=== PATIENT | female | born 1995 | race Caucasian/White ===

== ENCOUNTER 2016-12-14 15:07 | Outpatient (CLI) | payer MEDICAID ==
[2016-12-14 16:00] LABS: APPEARANCE,URINE CLEAR; BILIRUBIN,URINE NEGATIVE (NEGATIVE); GLUCOSE, URINE NEGATIVE (NEGATIVE); KETONES,URINE NEGATIVE (NEGATIVE); LEUKOCYTE ESTERASE,URINE SMALL (NEGATIVE); NITRITE,URINE NEGATIVE (NEGATIVE); PROTEIN,URINE NEGATIVE (NEGATIVE); URINE SPECIFIC GRAVITY 1.013; UROBILINOGEN,URINE NEGATIVE mg/dL (<2.0)
[2016-12-14 16:05] LABS: AMNISURE (ROM) NEGATIVE (NEGATIVE)
[2016-12-14 16:17] LABS: URINE BARBITURATES SCREEN NEGATIVE; URINE METHADONE SCREEN NEGATIVE; URINE OPIATES LOW NEGATIVE; URINE PHENCYCLIDINE SCREEN NEGATIVE
--- NOTE | 2016-12-14 18:05 | Non Stress Test Report ---
Non Stress Test Datetime Report Generated by CPN: 12/14/2016 18:05 DEMOGRAPHIC EGA NST: 34.5 INDICATION Indication for Study: Ordered by Provider; Other Indication for Study (NST) Other: lc for r/o srom VITAL SIGNS Temperature - NST: 98.5 RESP - NST: 16 MONITORING Monitor Explained: Monitor Explained; Test Explained; Patient Verbalized Understanding Time on Monitor: 12/14/2016 17:30 Time off Monitor: 12/14/2016 18:02 NST Duration: 32 NST INTERVENTIONS NST Interventions: PO Hydration; Reposition Patient Physician Notified NST: [place]anto BABY A: [id number] BABY A Movement : Present Contraction Frequency : irregular FHR Baseline : 150 Accelerations : 15X15 Decelerations : None Variability : Moderate 6-25bpm NST Review: Meets Criteria for Reactive NST NST Review and Verified By : Andressa Verduzco RN NST Results: Reactive NST REPORT Report Trigger: Send Report
[2016-12-14 18:16] LABS: ABSOLUTE BASOPHILS # (AUTO) 0.1 10^3/uL (0.0-0.2); ABSOLUTE LYMPHOCYTES (AUTO) 1.7 10^3/uL (0.5-4.7); ABSOLUTE MONOCYTES (AUTO) 0.6 10^3/uL (0.1-1.4); ABSOLUTE NEUT (AUTO) 8.6 10^3/uL (1.7-8.2); BASOPHILS % (AUTO) 0.8 % (0-2); EOSINOPHILS % (AUTO) 0.2 % (0-6); HEMATOCRIT 36.4 % (36.0-47.0); HEMOGLOBIN 12.6 g/dL (12.0-15.5); HGB HCT DIFFERENCE 1.4; LYMPHOCYTES % (AUTO) 15.7 % (13-45); MEAN CORPUSCULAR HEMOGLOBIN 28.7 pg (27.0-33.4); MEAN CORPUSCULAR HGB CONC 34.6 g/dL (32.0-36.0); MEAN CORPUSCULAR VOLUME 83 fl (80-97); MONOCYTES % (AUTO) 5.1 % (3-13); RED CELL DISTRIBUTION WIDTH 13.4 % (11.5-14.0); SEGMENTED NEUTROPHILS % (AUTO) 78.2 % (42-78)
[2016-12-14 18:33] LABS: ALANINE AMINOTRANSFERASE 21 U/L (9-52); ALBUMIN 3.8 g/dL (3.5-5.0); ALKALINE PHOSPHATASE 148 U/L (38-126); ANION GAP 15 (5-19); ASPARTATE AMINO TRANSFERASE 20 U/L (14-36); BILIRUBIN,DIRECT 0.1 mg/dL (0.0-0.4); BILIRUBIN,TOTAL 0.4 mg/dL (0.2-1.3); BLOOD UREA NITROGEN 5 mg/dL (7-20); CALCIUM 10.5 mg/dL (8.4-10.2); CARBON DIOXIDE 21 mmol/L (22-30); CHLORIDE 105 mmol/L (98-107); CREATININE RESULT 0.41 mg/dL (0.52-1.25); GLUCOSE 74 mg/dL (75-110); LDH 339 U/L (313-618); POTASSIUM 3.8 mmol/L (3.6-5.0); SODIUM 141.3 mmol/L (137-145); TOTAL PROTEIN 6.8 g/dL (6.3-8.2); URIC ACID 4.5 mg/dL (2.5-6.2)
== END 2016-12-14 18:53 | disposition home or self-care (01) ==
LOC: LC 15:07
PROVIDERS: ATTEND Student in an Organized Health Care Education/Training Program
PROC: 4A1HXCZ Monitoring of Products of Conception, Cardiac Rate, External Approach (ICD-10-PCS; principal; 2016-12-14)
DX: O47.03 False labor before 37 completed weeks of gestation, third trimester (principal); Z3A.34 34 weeks gestation of pregnancy
CPT/HCPCS: 36415; 59025; 80053; 80307; 81005; 83615; 84112; 84550; 85025

== ENCOUNTER 2018-05-10 18:12 | Emergency (ER) | payer MEDICAID, OTHER ==
[2018-05-10] MEDS ORDERED: ALBUTEROL SULFATE 0.083% NEB 2.5 MG/3 ML AMPUL NEB ONE (18:41)
--- NOTE | 2018-05-10 19:02 | RADIOLOGY REPORT (SQ) ---
EXAM DESCRIPTION: CHEST 2 VIEWS COMPLETED DATE/TIME: 05/10/2018 6:54 pm REASON FOR STUDY: cough x 1 month, wheezing COMPARISON: None. EXAM PARAMETERS: NUMBER OF VIEWS: two views TECHNIQUE: Digital Frontal and Lateral radiographic views of the chest acquired. RADIATION DOSE: NA LIMITATIONS: none FINDINGS: LUNGS AND PLEURA: No opacities, masses or pneumothorax. No pleural effusion. MEDIASTINUM AND HILAR STRUCTURES: No masses or contour abnormalities. HEART AND VASCULAR STRUCTURES: Heart normal size. No evidence for failure. BONES: No acute findings. HARDWARE: None in the chest. OTHER: No other significant finding. IMPRESSION: NO ACUTE RADIOGRAPHIC FINDING IN THE CHEST. TECHNICAL DOCUMENTATION: JOB ID: [id number] [employer]- All Rights Reserved Reading location - IP/workstation name: [email or web address]
--- NOTE | 2018-05-10 19:32 | ER Document Report ---
HPI - HPI Patient complains to provider of: Cough Onset: Other - 1 month Pain Level: 1 Context: 23-year-old non-smoker is been complaining cough for 1 month. She was treated and earlier in the month by [facility] and given a azithromycin and diagnosed with upper respiratory infection. The antibiotics did not help. She is continued to cough and feels tight in her chest. No history of asthma. No fever or chills. Associated Symptoms: None Exacerbated by: Denies Relieved by: Denies Similar symptoms previously: Yes Recently seen / treated by doctor: Yes - ROS ROS below otherwise negative: Yes Systems Reviewed and Negative: Yes All other systems reviewed and negative - CARDIOVASCULAR Cardiovascular: REPORTS: Chest pain - RESPIRATORY Respiratory: REPORTS: Coughing - with coughing - GASTROINTESTINAL Gastrointestinal: DENIES: Abdominal Pain - URINARY Urinary: DENIES: Dysuria - REPRODUCTIVE Reproductive: REPORTS: : Past Medical History - General Information source: Patient - Social History Smoking Status: Never Smoker Chew tobacco use (# tins/day): No Frequency of alcohol use: Occasional Drug Abuse: None Lives with: Family Family History: Reviewed & Not Pertinent Patient has suicidal ideation: No Patient has homicidal ideation: No - Past Medical History Cardiac Medical History: Reports: Hx Hypertension Renal/ Medical History: Denies: Hx Peritoneal Dialysis Past Surgical History: Reports: Hx Section, Hx Cholecystectomy - Immunizations Hx Diphtheria, Pertussis, Tetanus Vaccination: Yes Vertical Provider Document - CONSTITUTIONAL Agree With Documented VS: Yes Exam Limitations: No Limitations - INFECTION CONTROL TRAVEL OUTSIDE OF THE [place] IN LAST 30 DAYS: No - HEENT HEENT: Normocephalic, Pharyngeal Erythema - Minimal. negative: Tympanic Membrane Red, Tympanic Membrane Bulging - NECK Neck: Supple. negative: Lymphadenopathy-Left, Lymphadenopathy-Right - RESPIRATORY Respiratory: No Respiratory Distress, Wheezing - Inspiratory on the left - CARDIOVASCULAR Cardiovascular: Regular Rate, Regular Rhythm - NEURO Level of Consciousness: Awake - DERM Integumentary: No Rash Course - Re-evaluation Re-evalutation: 05/10/18 19:32 Chest x-ray is negative per radiologist. looser cough and insp/exp wheeze heard now. She feels like it is alot looser. We will give 1 more breathing treatment and start her on prednisone. 05/10/18 20:37 Lungs clear after second treatment - Vital Signs Vital signs: Temp Pulse Resp BP Pulse Ox 99.4 F 104 H 18 136/90 H 100 05/10/18 18:25 05/10/18 18:25 05/10/18 18:25 05/10/18 18:25 05/10/18 18:25 Discharge - Discharge Clinical Impression: Asthmatic bronchitis Condition: Good Disposition: HOME, SELF-CARE Instructions: Bronchitis With Bronchospasm (Wheezing) (OM), Inhaled Bronchodilators (OM), Steroid Medication Additional Instructions: Prednisone for 4 more days Use the albuterol inhaled metered-dose inhaler every 3 hours for the cough and wheeze Return to the emergency room if symptoms worsen Referral to family practice. Prescriptions: Albuterol Sulfate [Proair HFA Inhalation Aerosol 8.5 gm MDI] 2 puff IH Q3HP PRN #1 hfa.aer.ad PRN Reason: Prednisone [Deltasone 20 mg Tablet] 40 mg PO DAILY #8 tablet Forms: Return to Work Referrals: JAEL IBRAHIM NP [COMMUNITY BASED STAFF] - Follow up as needed
[2018-05-10] MEDS ORDERED: IPRATROPIUM/ALBUTEROL 0.5-2.5 MG/3 ML AMPUL NEB ONE (19:44)
[2018-05-10] MEDS ORDERED: PREDNISONE 20 MG TABLET PO ONE (19:49)
[2018-05-10 20:28] VITALS: BP 136/89
== END 2018-05-10 20:27 | disposition home or self-care (01) ==
LOC: ER 18:12
DX: O99.519 Diseases of the respiratory system complicating pregnancy, unspecified trimester (principal); J45.909 Unspecified asthma, uncomplicated; O26.899 Other specified pregnancy related conditions, unspecified trimester; R05 Cough; R07.89 Other chest pain; O16.9 Unspecified maternal hypertension, unspecified trimester; Z3A.00 Weeks of gestation of pregnancy not specified
CPT/HCPCS: 94640 ×2; 99285; 71046; J7512; J7620

== ENCOUNTER 2018-06-28 18:51 | Emergency (ER) | payer OTHER ==
[2018-06-28] MEDS ORDERED: ASPIRIN 81 MG TABLET, CHEWABLE PO ONE (19:46)
--- NOTE | 2018-06-28 19:46 | ER Document Report ---
ED Medical Screen (RME) - General Chief Complaint: Painful Cough Stated Complaint: CHEST PAIN Time Seen by Provider: 06/28/18 19:38 Notes: 23-year-old female presents emergency department with complaints of chest pain and shortness of breath. Patient states that she just began having chest pain since yesterday afternoon. She describes the pain as a sharp and stabbing sensation that is located midsternally with radiation to between her shoulder blades. Patient states that the pain has been constant. She states that it is worse with coughing. No alleviating factors. Patient states that she has been having increasing shortness of breath. She has a history of shortness of breath since March. She is been worked up in both the emergency department and and her primary care physician's office. She has been placed on antibiotics and prednisone. She denies any relief of symptoms. Patient states that she just had a CT of her chest done last week. She states that this was normal. Patient was referred to a x ray nurse. She states that she is scheduled to follow-up with x ray nurse at the beginning of July. She states that when she coughs she begins to see black and feels like she is going to pass out. She denies any actual syncopal episodes. Patient is coughing up thick green sputum. Denies fever, chills. Patient denies hx of DVT/PE, calf pain, calf swelling, recent travel, recent surgery, hormone use. Patient has a hx of HTN but denies DM, hyperlipidemia, CAD, smoking, family hx of CAD. I have greeted and performed a rapid initial assessment of this patient. A comprehensive ED assessment and evaluation of the patient, analysis of test results and completion of the medical decision making process will be conducted by additional ED providers. PHYSICAL EXAMINATION: GENERAL: Well-appearing, well-nourished and in no acute distress. HEAD: Atraumatic, normocephalic. EYES: Pupils equal round extraocular movements intact, conjunctiva are normal. ENT: Nares patent NECK: Normal range of motion LUNGS: No respiratory distress Musculoskeletal: Normal range of motion NEUROLOGICAL: Normal speech, normal gait. PSYCH: Normal mood, normal affect. SKIN: Warm, Dry, normal turgor, no rashes or lesions noted. TRAVEL OUTSIDE OF THE [place] IN LAST 30 DAYS: No - Related Data Allergies/Adverse Reactions: No Known Allergies Allergy (Unverified 08/03/14 23:23) Past Medical History - Social History Chew tobacco use (# tins/day): No Frequency of alcohol use: Occasional Drug Abuse: None - Past Medical History Cardiac Medical History: Reports: Hx Hypertension Renal/ Medical History: Denies: Hx Peritoneal Dialysis Past Surgical History: Reports: Hx Section, Hx Cholecystectomy - Immunizations Hx Diphtheria, Pertussis, Tetanus Vaccination: Yes Physical Exam - Vital signs Vitals: Temp Pulse Resp BP Pulse Ox 98.6 F 116 H 22 H 146/104 H 98 06/28/18 19:10 06/28/18 19:10 06/28/18 19:10 06/28/18 19:10 06/28/18 19:10 Course - Vital Signs Vital signs: Temp Pulse Resp BP Pulse Ox 98.6 F 116 H 22 H 146/104 H 98 06/28/18 19:10 06/28/18 19:10 06/28/18 19:10 06/28/18 19:10 06/28/18 19:10
[2018-06-28] MEDS ORDERED: ASPIRIN 81 MG TABLET, CHEWABLE ONE (19:47)
[2018-06-28] MEDS ORDERED: METHYLPREDNISOLONE INJ 125 MG/2 ML SDV IV ONE (19:53)
[2018-06-28] MEDS ORDERED: IPRATROPIUM/ALBUTEROL 0.5-2.5 MG/3 ML AMPUL NEB ONE (19:53)
[2018-06-28 20:10] LABS: ABSOLUTE BASOPHILS # (AUTO) 0.1 10^3/uL (0.0-0.2); ABSOLUTE EOSINOPHILS # (AUTO) 0.1 10^3/uL (0.0-0.6); ABSOLUTE LYMPHOCYTES (AUTO) 2.9 10^3/uL (0.5-4.7); ABSOLUTE MONOCYTES (AUTO) 0.8 10^3/uL (0.1-1.4); ABSOLUTE NEUT (AUTO) 7.7 10^3/uL (1.7-8.2); BASOPHILS % (AUTO) 1.3 % (0-2); EOSINOPHILS % (AUTO) 0.8 % (0-6); HEMATOCRIT 42.1 % (36.0-47.0); HEMOGLOBIN 14.4 g/dL (12.0-15.5); MEAN CORPUSCULAR HEMOGLOBIN 29.1 pg (27.0-33.4); MEAN CORPUSCULAR HGB CONC 34.3 g/dL (32.0-36.0); MEAN CORPUSCULAR VOLUME 85 fl (80-97); MONOCYTES % (AUTO) 7.1 % (3-13); PLATELET COUNT 434 10^3/uL (150-450); RED BLOOD COUNT 4.96 10^6/uL (3.72-5.28); RED CELL DISTRIBUTION WIDTH 12.8 % (11.5-14.0); SEGMENTED NEUTROPHILS % (AUTO) 65.8 % (42-78); TOTAL CELLS COUNTED % (AUTO) 100 %; WHITE BLOOD COUNT 11.8 10^3/uL (4.0-10.5)
--- NOTE | 2018-06-28 20:21 | RADIOLOGY REPORT (SQ) ---
EXAM DESCRIPTION: CHEST SINGLE VIEW COMPLETED DATE/TIME: 06/28/2018 8:06 pm REASON FOR STUDY: chest pain, cough, shortness of breath COMPARISON: None. EXAM PARAMETERS: NUMBER OF VIEWS: One view. TECHNIQUE: Single frontal radiographic view of the chest acquired. RADIATION DOSE: NA LIMITATIONS: None. FINDINGS: LUNGS AND PLEURA: No opacities, masses or pneumothorax. No pleural effusion. MEDIASTINUM AND HILAR STRUCTURES: No masses. Contour normal. HEART AND VASCULAR STRUCTURES: Heart normal in size. Normal vasculature. BONES: No acute findings. HARDWARE: None in the chest. OTHER: No other significant finding. IMPRESSION: NO ACUTE RADIOGRAPHIC FINDING IN THE CHEST. TECHNICAL DOCUMENTATION: JOB ID: [id number] [employer]- All Rights Reserved Reading location - IP/workstation name: [email or web address]
[2018-06-28 20:27] LABS: ALANINE AMINOTRANSFERASE 68 U/L (9-52); ALBUMIN 4.5 g/dL (3.5-5.0); ALKALINE PHOSPHATASE 75 U/L (38-126); ANION GAP 9 (5-19); ASPARTATE AMINO TRANSFERASE 58 U/L (14-36); BILIRUBIN,DIRECT 0.4 mg/dL (0.0-0.4); BILIRUBIN,TOTAL 0.6 mg/dL (0.2-1.3); BLOOD UREA NITROGEN 9 mg/dL (7-20); CALCIUM 9.9 mg/dL (8.4-10.2); CARBON DIOXIDE 29 mmol/L (22-30); CHLORIDE 103 mmol/L (98-107); GLUCOSE 97 mg/dL (75-110); LIPASE 53.2 U/L (23-300); POTASSIUM 4.1 mmol/L (3.6-5.0); SODIUM 140.5 mmol/L (137-145); TOTAL PROTEIN 8.5 g/dL (6.3-8.2)
--- NOTE | 2018-06-28 23:00 | RADIOLOGY REPORT (SQ) ---
EXAM DESCRIPTION: CT CHEST ANGIOGRAPHY WITHOUT THEN WITH IV CONTRAST COMPLETED DATE/TME: 06/28/2018 20:55 CLINICAL HISTORY: 23 years Female SOB COMPARISON: None. TECHNIQUE: Contiguous axial images were obtained through the chest during the infusion of IV contrast. Reformatted images obtained. MIP reformatted images obtained. This exam was performed according to our department optimization program which includes automated exposure control, adjustment of the mA and/or kv according to patient size and/or use of iterative reconstruction technique. FINDINGS: There is no evidence of pericardial effusion or pleural effusion. No significant thoracic adenopathy. Aorta is normal in caliber without dissection or rupture. Enlarged fatty liver. There appears to be pneumobilia. No evidence of pulmonary embolus. No acute consolidation noted. IMPRESSION:No evidence of pulmonary embolus Enlarged fatty liver Pneumobilia which may be postsurgical
--- NOTE | 2018-06-28 23:47 | ER Document Report ---
ED Respiratory Problem - General Chief Complaint: Painful Cough Stated Complaint: CHEST PAIN Time Seen by Provider: 06/28/18 19:38 Mode of Arrival: Ambulatory Information source: Patient, Relative Notes: Patient is a 23-year-old female comes emergency room complaining of cough shortness of breath and chest pain. Patient states she started with this hacking dry cough back in March. She has seen her primary care provider for this who believe that part of her problem was the size of her tonsils which are enormous and he also told her there is something else involved but is not sure what. He is scheduled her a exam with a football scout but she can see the football scout until July 19 and she is not getting any better. She also had a plain CT of the chest done which was also negative this had been ordered by primary care provider as well. Patient states that she has developed this dry hacking cough that at times puts her into such a bit since she nearly passes out because she cannot stop. She has been giving MDIs as well as steroids with no relief. But states that the one time she got some relief was when she received IM injection of steroids. She has been told she has very enlarged tonsils and when she gets a steroid shot it also reduces their size but she still continues to wheeze. 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 She is currently taking no medications and denies any other medical problems. She has a history of surgeries only a cholecystectomy. She does states she has an occasional night sweat. What is concerning patient is that she is starting to lose sleep over this with a hacking cough that wakes her up in the middle the night. The only association she can make with this cough is it almost always occurs with exertion but never with change in weather humidity or cold. She was treated for bronchitis from a walk-in clinic in March with a steroid pack and Zithromax with no relief of symptoms. She was then seen here in our ER where she was diagnosed with bronchitis as well and sent out on a steroid taper and inhaler. TRAVEL OUTSIDE OF THE [place] IN LAST 30 DAYS: No - HPI Patient complains to provider of: Asthma, Chest pain, Cough, Short of breath Onset: Other - 3 months ago but progressively worse the past 24 hours. Duration: Worse/persistent Initiating Event: Other - Unknown Quality of pain: Achy Severity: Moderate Pain Level: 3 Short of Breath: Moderate Chest pain/discomfort: Constant Cough: Nonproductive Sputum amount: Small Sputum color: Green Sputum consistency: Thick At home treatment: Bronchodilators, Oral steroids Associated symptoms: Anxiety, Chest pain/discomfort, Wheezing Similar symptoms previously: Yes Recently seen / treated by doctor: Yes - Related Data Allergies/Adverse Reactions: No Known Allergies Allergy (Unverified 04/15/14 23:23) Past Medical History - General Information source: Patient, Parent - Social History Smoking Status: Never Smoker Cigarette use (# per day): No Chew tobacco use (# tins/day): No Smoking Education Provided: No Frequency of alcohol use: Occasional Drug Abuse: None Family History: Reviewed & Not Pertinent Patient has suicidal ideation: No Patient has homicidal ideation: No - Past Medical History Cardiac Medical History: Reports: Hx Hypertension Renal/ Medical History: Denies: Hx Peritoneal Dialysis Past Surgical History: Reports: Hx Section, Hx Cholecystectomy - Immunizations Hx Diphtheria, Pertussis, Tetanus Vaccination: Yes Review of Systems - Review of Systems Constitutional: No symptoms reported EENT: No symptoms reported Cardiovascular: Chest pain Respiratory: Short of breath, Wheezing Gastrointestinal: No symptoms reported Genitourinary: No symptoms reported Female Genitourinary: No symptoms reported Musculoskeletal: No symptoms reported Skin: No symptoms reported Hematologic/Lymphatic: No symptoms reported Neurological/Psychological: No symptoms reported -: Yes All other systems reviewed and negative Physical Exam - Vital signs Vitals: Temp Pulse Resp BP Pulse Ox 98.6 F 116 H 22 H 146/104 H 98 06/28/18 19:10 06/28/18 19:10 06/28/18 19:10 06/28/18 19:10 06/28/18 19:10 - Notes Notes: Well-nourished well-developed 23-year-old female no apparent distress on examination. - General General appearance: Appears well, Alert - HEENT Head: Normocephalic, Atraumatic Eyes: Normal Tympanic membrane: Normal. No: Bulging Sinus: Normal. No: Abnormal, Frontal, Mastoid, Maxillary, Redness, Swelling, Tenderness Nasal: Normal. No: Bloody discharge, Nelson deformity, Ecchymosis, Epistaxis, Purulent discharge, Septal hematoma, Swelling, Clear rhinorrhea Mouth/Lips: Normal. No: Angioedema, Caries, Dental fracture Mucous membranes: Normal Pharynx: Normal, Erythema, Uvular edema, Other - Examination patient's oral cavity does show in the posterior pharynx has a moderate amount of erythema with patient having bilateral tonsillar enlargement that are about equal in size. There is no exudate noted. Uvula is midline with moderate amount of erythema no exudate there is no encroachment upon the uvula by the tonsils at this time.. No: Blood in hypopharynx, Exudate, Peritonsillar abscess, Post nasal drainage, Retropharyngeal abscess, Tonsillar hypertrophy, Potential airway comprom. Neck: Normal, Supple. No: Anterior cervical chain, Posterior cervical chain, Carotid bruit, Kernig's, Lymphadenopathy, Meningismus, Neck mass, Shotty nodes, Subcutaneous emphysema, Thyroid nodule, Thyromegally - Respiratory Respiratory status: No respiratory distress Chest status: Nontender Breath sounds: Normal, Wheezing. No: Rales, Rhonchi, Stridor Chest palpation: Normal - Cardiovascular Rhythm: Regular Heart sounds: Normal auscultation Murmur: No - Abdominal Inspection: Normal Distension: No distension Bowel sounds: Normal Tenderness: Nontender Organomegaly: No organomegaly - Extremities General upper extremity: Normal inspection, Nontender, Normal color, Normal ROM , Normal strength, Normal temperature. No: Edema General lower extremity: Normal inspection, Nontender, Normal ROM, Normal strength, Normal temperature, Normal weight bearing. No: Edema - Neurological Neuro grossly intact: Yes Cognition: Normal Orientation: AAOx4 Armando Coma Scale Eye Opening: Spontaneous [place] Coma Scale Verbal: Oriented Armando Coma Scale Motor: Obeys Commands [place] Coma Scale Total: 15 Speech: Normal - Skin Skin Temperature: Warm Skin Moisture: Dry Skin Color: Normal, Lyles Course - Re-evaluation Re-evalutation: 06/28/18 23:55 During original history and physical examination. And as I was talking to patient about having any lower extremity trauma leading to the idea of a possible PE mother injected some information that seem pertinent at the time and that is that she was diagnosed with a PE at a young age with no history of trauma. Mother states that I took him 18 hours of why she could not breathe "back then". And she was concerned that her daughter may have the same thing. Given the symptoms of patient having some tachycardia and drops that with exertion hypothesis was a possibility. Given that without any trauma I seriously doubted the d-dimer would be elevated so I elected to do the CTA of the chest. The CT actually was negative and I have informed patient that there is hardly anything else I can think of to do that she is going to need to see the football scout for further interventions. I did suggest however we will place her on an oral inhaled steroid and for that I have chosen the Azmacort. Patient will give this attempt with along with her MDI inhaler she will continue to use every 4-6 hours. I believe she has some form of a reactive airway however cannot put my finger on why it is accentuated only with exertion. Also cannot figure out why the steroids orally did not seem to help her. At this point when I tried to treat her cough with some Tessalon Perles. - Vital Signs Vital signs: Temp Pulse Resp BP Pulse Ox 98.6 F 116 H 22 H 146/104 H 98 06/28/18 19:10 06/28/18 19:10 06/28/18 19:10 06/28/18 19:10 06/28/18 19:10 - Laboratory Result Diagrams: 06/28/18 19:57 06/28/18 19:57 Laboratory results interpreted by me: 06/28/18 06/28/18 19:57 19:57 WBC 11.8 H AST 58 H ALT 68 H Total Protein 8.5 H Discharge - Discharge Clinical Impression: Cough Reactive airway disease with acute exacerbation Qualifiers: Asthma severity: moderate Asthma persistence: persistent Qualified Code(s): J45.41 - Moderate persistent asthma with (acute) exacerbation Condition: Stable Disposition: HOME, SELF-CARE Instructions: Reactive Airway Disease ([facility]) Additional Instructions: As we discussed you really need to see the football scout to help you with this problem. At this time I will will place you on a inhaled steroid and continue with your MDI treatments. Also place you on a medication for esophagitis to see if that helps alleviate the cough. We will also place you on some Tessalon Perles. Should you have any concerns or problems return to ER for recheck. As we discussed the CTA of your chest shows there was no pulmonary embolism which was marked main primary concern with your mother's history. Prescriptions: Benzonatate [Tessalon Perle 100 mg Capsule] 100 mg PO Q8HP PRN #30 cap PRN Reason: Omeprazole 40 mg PO DAILY #30 capsule.dr Triamcinolone Acetonide [Azmacort] 20 gm IH BID #1 aer.w.adap Referrals: MICHAEL MIRZA, ACUTE CARE REGISTERED NURSE-C [Primary Care Provider] - Follow up as needed
[2018-06-29 03:39] VITALS: BP 128/85
--- NOTE | 2018-06-29 07:55 | EKG REPORT ---
SEVERITY:- OTHERWISE NORMAL ECG - SINUS TACHYCARDIA : Confirmed by: Marciano Almaraz MD 29-Jun-2018 07:54:45
== END 2018-06-29 00:35 | disposition home or self-care (01) ==
LOC: ER 18:51
DX: J45.41 Moderate persistent asthma with (acute) exacerbation (principal); J35.1 Hypertrophy of tonsils; R05 Cough; R06.02 Shortness of breath; R07.9 Chest pain, unspecified; R61 Generalized hyperhidrosis; F41.9 Anxiety disorder, unspecified; R00.0 Tachycardia, unspecified; I10 Essential (primary) hypertension; Z82.49 Family history of ischemic heart disease and other diseases of the circulatory system
CPT/HCPCS: 93005; 94640; 99284; 96374; 36415; 87070; 87880; 83690; 85025; 80053; 84484; 71045; 71275; 93010; J2930; J7620

== ENCOUNTER 2018-09-03 01:40 | Emergency (ER) | payer OTHER ==
[2018-09-03 02:56] LABS: ABSOLUTE BASOPHILS # (AUTO) 0.1 10^3/uL (0.0-0.2); ABSOLUTE EOSINOPHILS # (AUTO) 0.1 10^3/uL (0.0-0.6); ABSOLUTE LYMPHOCYTES (AUTO) 2.2 10^3/uL (0.5-4.7); ABSOLUTE NEUT (AUTO) 10.1 10^3/uL (1.7-8.2); EOSINOPHILS % (AUTO) 0.6 % (0-6); HEMATOCRIT 41.7 % (36.0-47.0); HEMOGLOBIN 14.2 g/dL (12.0-15.5); LYMPHOCYTES % (AUTO) 16.3 % (13-45); MEAN CORPUSCULAR HEMOGLOBIN 28.8 pg (27.0-33.4); MEAN CORPUSCULAR VOLUME 85 fl (80-97); MONOCYTES % (AUTO) 7.3 % (3-13); PLATELET COUNT 418 10^3/uL (150-450); RED BLOOD COUNT 4.92 10^6/uL (3.72-5.28); RED CELL DISTRIBUTION WIDTH 12.6 % (11.5-14.0); SEGMENTED NEUTROPHILS % (AUTO) 74.8 % (42-78); TOTAL CELLS COUNTED % (AUTO) 100 %; WHITE BLOOD COUNT 13.4 10^3/uL (4.0-10.5)
[2018-09-03 03:03] LABS: ALANINE AMINOTRANSFERASE 59 U/L (9-52); ALBUMIN 4.5 g/dL (3.5-5.0); ALKALINE PHOSPHATASE 93 U/L (38-126); ANION GAP 10 (5-19); ASPARTATE AMINO TRANSFERASE 40 U/L (14-36); BILIRUBIN,DIRECT 0.3 mg/dL (0.0-0.4); BILIRUBIN,TOTAL 0.7 mg/dL (0.2-1.3); BLOOD UREA NITROGEN 10 mg/dL (7-20); CARBON DIOXIDE 26 mmol/L (22-30); CHLORIDE 105 mmol/L (98-107); GLUCOSE 108 mg/dL (75-110); LIPASE 67.8 U/L (23-300); POTASSIUM 4.3 mmol/L (3.6-5.0); SODIUM 140.6 mmol/L (137-145); TOTAL PROTEIN 7.9 g/dL (6.3-8.2)
--- NOTE | 2018-09-03 03:07 | RADIOLOGY REPORT (SQ) ---
EXAM DESCRIPTION: XR CHEST 2 VIEWS COMPLETED DATE/TME: 09/03/2018 02:31 CLINICAL HISTORY: 23 years Female, pain COMPARISON:06/28/2018 NUMBER OF VIEWS/TECHNIQUE: 2, Frontal, Lateral FINDINGS: Moderate lung volume, clear parenchyma, normal cardiac silhouette, and intact bony thorax. IMPRESSION: No acute cardiopulmonary findings.
[2018-09-03] MEDS ORDERED: KETOROLAC TROMETHAMINE INJ/PF 30 MG/1 ML SDV IV ONE (03:14)
[2018-09-03 03:22] LABS: APPEARANCE,URINE CLEAR; BILIRUBIN,URINE NEGATIVE (NEGATIVE); COLOR,URINE YELLOW; GLUCOSE, URINE NEGATIVE (NEGATIVE); KETONES,URINE NEGATIVE (NEGATIVE); LEUKOCYTE ESTERASE,URINE NEGATIVE (NEGATIVE); NITRITE,URINE NEGATIVE (NEGATIVE); PROTEIN,URINE NEGATIVE (NEGATIVE); URINE SPECIFIC GRAVITY 1.016; UROBILINOGEN,URINE NEGATIVE mg/dL (<2.0)
--- NOTE | 2018-09-03 03:32 | RADIOLOGY REPORT (SQ) ---
EXAM DESCRIPTION: US ABDOMEN LIMITED COMPLETED DATE/TME: 09/03/2018 02:32 CLINICAL HISTORY: 23 years Female, right upper quadrant pain Comparison: None. LIMITATIONS: Bowel gas and body habitus artifact. FINDINGS: Cholecystectomy, negative sonographic Turner's test, 19 cm mild hepatomegaly, moderate hepatic steatosis obscured common bile duct, no intrahepatic ductal dilation, 13-cm right kidney, obscured pancreas, visualized vasculature/abdominal aorta, and no significant ascites appear otherwise unremarkable. IMPRESSION: No acute findings. Hepatic steatosis. Cholecystectomy. Limitation.
--- NOTE | 2018-09-03 04:08 | ER Document Report ---
ED General - General Chief Complaint: Shortness Of Breath Stated Complaint: SHORTNESS OF BREATH Time Seen by Provider: 09/03/18 02:24 Notes: Patient is a 23-year-old female presenting to the emergency department complaining of shortness of breath and right upper quadrant abdominal pain. Patient states this january she started with upper respiratory symptoms and wheezing states she was sent to a plasterer helper who inevitably told her she had asthma. Placed her on loratadine, Singulair, Symbicort, albuterol, Nasonex. Patient states she has been taking medications as prescribed. States on 08/22/2018 she presented to her primary care provider with a cough and congestion and was diagnosed with pneumonia. Patient states she was placed on levofloxacin and has taken medications as prescribed. Patient states she was at her PCP against today for reevaluation. Told her primary care provider that she had right lower rib, right upper quadrant abdominal pain at that time. Patient states primary care provider told her that she may have pulled a muscle from coughing. Patient states this morning the pain in her right lower chest right upper abdomen woke her up from sleeping which is why she presents to the emergency room. Patient states last menstrual period was 08/08/2018 Past medical history: Hypertension, fatty liver, asthma Medications: HCTZ, loratadine, omeprazole, Singulair, Symbicort, albuterol, Nasonex Allergies: Nickel, codeine Surgical history: Cholecystectomy, section TRAVEL OUTSIDE OF THE [place] IN LAST 30 DAYS: No - Related Data Allergies/Adverse Reactions: No Known Allergies Allergy (Unverified 04/15/14 23:23) Past Medical History - General Information source: Patient - Social History Smoking Status: Unknown if Ever Smoked Family History: Reviewed & Not Pertinent - Past Medical History Cardiac Medical History: Reports: Hx Hypertension Renal/ Medical History: Denies: Hx Peritoneal Dialysis Past Surgical History: Reports: Hx Section, Hx Cholecystectomy - Immunizations Hx Diphtheria, Pertussis, Tetanus Vaccination: Yes Review of Systems - Review of Systems Constitutional: denies: Fever EENT: See HPI Cardiovascular: See HPI Respiratory: See HPI Gastrointestinal: See HPI Genitourinary: denies: Burning, Dysuria Female Genitourinary: See HPI Musculoskeletal: See HPI Skin: No symptoms reported Hematologic/Lymphatic: No symptoms reported Neurological/Psychological: No symptoms reported Physical Exam - Vital signs Vitals: Temp Pulse Resp BP Pulse Ox 98.2 F 116 H 18 147/103 H 97 09/03/18 01:41 09/03/18 01:41 09/03/18 01:41 09/03/18 01:41 09/03/18 01:41 - Notes Notes: GENERAL: Alert, interacts well. No acute distress. HEAD: Normocephalic, atraumatic. EYES: Pupils equal, round, and reactive to light. Extraocular movements intact. ENT: Oral mucosa moist, tongue midline. [Nares patent, no nasal septal hematoma, TM's intact, nonerythematous, nonbulging bilaterally. Pharynx minorly erythematous no palatal petechiae or exudate noted. NECK: Full range of motion. Supple. Trachea midline. No lymphadenopathy appreciated LUNGS: Clear to auscultation bilaterally, no wheezes, rales, or rhonchi. No respiratory distress. HEART: Regular rate and rhythm. No murmur Chest: No crepitus felt, generalized pain upon palpation right lower ribs. No erythema or ecchymosis noted. ABDOMEN: Soft, Non-distended. Bowel sounds present in all 4 quadrants. Generalized right upper quadrant abdominal pain, no McBurney's point tenderness noted. EXTREMITIES: Moves all 4 extremities spontaneously. No edema, normal radial and dorsalis pedis pulses bilaterally. No cyanosis. BACK: no cervical, thoracic, lumbar midline tenderness. No saddle anesthesia, normal distal neurovascular exam. NEUROLOGICAL: Alert and oriented x3. Normal speech. cranial nerves II through XII grossly intact. PSYCH: Normal affect, normal mood. SKIN: Warm, dry, normal turgor. No rashes or lesions noted. Course - Re-evaluation Re-evalutation: 09/03/18 04:04 Patient's labs reveal a leukocytosis of 13.4, no signs of anemia, minor elevation in patient's AST ALT. No electrolyte abnormalities, no signs of urinary tract infection, hCG is negative, no elevation in Lipase, chest x-ray shows no signs of pneumonia, pneumothorax, rib fracture. Ultrasound right upper quadrant reveals no obvious abnormalities. No retained gallstones. Patient states she knows she has a history of a fatty liver. After Toradol treatment patient states her pain is a lot better. Patient continues to have clear lung sounds throughout with no respiratory distress. Discussed if this is a pulled muscle she should continue with NSAIDs at home. Close return precautions with primary care provider discussed. - Vital Signs Vital signs: Temp Pulse Resp BP Pulse Ox 98.6 F 100 16 128/56 H 96 09/03/18 04:31 09/03/18 04:31 09/03/18 04:31 09/03/18 04:31 09/03/18 04:31 - Laboratory Result Diagrams: 09/03/18 02:40 09/03/18 02:40 Laboratory results interpreted by me: 09/03/18 09/03/18 02:40 02:40 WBC 13.4 H Absolute Neutrophils 10.1 H AST 40 H ALT 59 H Discharge - Discharge Clinical Impression: Right upper quadrant pain Condition: Stable Disposition: HOME, SELF-CARE Instructions: Muscle Strain ([facility]), Toradol Injection ([facility]) Additional Instructions: As we discussed you have been seen and treated in the emergency department for right upper quadrant right lower rib pain. Your ultrasound reveals no signs of abnormalities. Your x-ray reveals no signs of pneumonia. Your labs are also unremarkable. If you do have a pulled muscle you should continue taking [id number] Tylenol and Motrin at home. Please make sure you follow-up with your primary care provider in the next 24-48 hours. Referrals: MICHAEL MIRZA, CHAITANYA-C [Primary Care Provider] - Follow up as needed
[2018-09-03 04:35] VITALS: BP 128/56
== END 2018-09-03 04:34 | disposition home or self-care (01) ==
LOC: ER 01:40
DX: R10.11 Right upper quadrant pain (principal); J45.909 Unspecified asthma, uncomplicated; K76.0 Fatty (change of) liver, not elsewhere classified; D72.829 Elevated white blood cell count, unspecified; I10 Essential (primary) hypertension; Z79.899 Other long term (current) drug therapy; Z88.5 Allergy status to narcotic agent; Z91.048 Other nonmedicinal substance allergy status; Z90.49 Acquired absence of other specified parts of digestive tract
CPT/HCPCS: 99285; 96374; 36415; 83690; 85025; 81025; 80053; 81001; 71046; 76705; J1885

== ENCOUNTER 2018-11-23 13:10 | Day surgery (SDC) | payer OTHER ==
[~2018-11-23 13:10] MED LIST: CARBOXYMETHYLCELLULOSE SOD 0.5% 0.4 ML DROPERETTE ONE; DEXAMETHASONE SOD PHOS INJ 10 MG/1 ML VIAL ONE; DIPHENHYDRAMINE HCL 50 MG/ML VIAL ONE; FENTANYL CITRATE INJ/PF 100 MCG/2 ML AMPUL ONE; HYDROMORPHONE HCL INJ/PF 2 MG/ML AMPULE ONE; MIDAZOLAM 2 MG/2 ML INJ ONE; ONDANSETRON HCL INJ/PF 4 MG/2 ML SDV ONE; PROPOFOL INJ 200 MG/20 ML VIAL IV ONE; ROCURONIUM BROMIDE INJ 50 MG/5 ML VIAL IV ONE; SUCCINYLCHOLINE CHLORIDE INJ 200 MG/10 ML VIAL ONE
[2018-11-23] MEDS ORDERED: ALBUTEROL SULFATE 0.083% NEB 2.5 MG/3 ML AMPUL NEB ONE (13:57)
[2018-11-23] MEDS ORDERED: CLINDAMYCIN 900 MG/D5W RTU 900 MG/50 ML RTUPB IV ONE (14:00)
[2018-11-23] MEDS ORDERED: BUPIVACAINE HCL 0.5%/EPI 1:200000 INJ 1.8 ML CARTRIDGE ONE (14:08)
[2018-11-23] MEDS ORDERED: ACETAMINOPHEN 1,000 MG/100 ML RTUPB IV ONE (14:46)
[2018-11-23] MEDS ORDERED: DEXMEDETOMIDINE INJ 80 MCG/20 ML VIAL IV ONE (15:02)
--- NOTE | 2018-11-28 08:06 | [facility] OPERATIVE REPORT E ---
[facility] NAME: AVTAR WATTS AGE: 23Y DATE OF SURGERY: 11/23/2018 ROOM: PREOPERATIVE DIAGNOSES: 1. ACUTE RECURRENT TONSILLITIS. 2. CHRONIC TONSILLITIS. 3. ADENOTONSILLAR HYPERTROPHY. POSTOPERATIVE DIAGNOSES: 1. ACUTE RECURRENT TONSILLITIS. 2. CHRONIC TONSILLITIS. 3. ADENOTONSILLAR HYPERTROPHY. OPERATION: 1. Bilateral tonsillectomy. Patient age greater than 12. 2. Adenoidectomy. SURGEON: VANNESA BEJARANO D.O. ANESTHESIA: General endotracheal tube. ANESTHESIA STAFF: LELA Purdy ESTIMATED BLOOD LOSS: 10 mL FLUIDS: 700 mL COMPLICATIONS: None. DRAINS: None. SPONGE COUNT: Verified. MATERIALS FORWARDED SPECIMEN: Left and right tonsillar tissue. FINDINGS: 1. The tonsils were noted to be 3 to 4+ in size, were cryptic in nature, and there was significant tonsillar debris present bilateral. 2. Adenoid hypertrophy was 2 to 3+. 3. The soft palatal tissues were redundant in nature and the uvula was noted to be thickened and elongated. INDICATIONS: This is a 23-year-old white female who was seen and evaluated in the [place] [facility] office. The patient had been referred for, and she complained of, a history of acute recurrent tonsillitis and episodes occurring each year, requiring antibiotic treatment over the years. The patient reports significant sore throat discomfort, fevers, poor p.o. intake, and missed days from school and work with these episodes each year over the years. The patient is also with clinical findings consistent with adenotonsillar hypertrophy. The patient also has some symptoms over the years consistent with upper airway-resistant syndrome, but no apneas identified. After extensive discussion with the patient, recommendation and plan was for a tonsillectomy and adenoidectomy. The procedures and all of their risks and complications were all discussed with the patient, which she voiced an understanding of, agreed with, and consent was obtained. PROCEDURE: The patient was taken to the main operating room and placed on the operating room table in the supine position. Appropriate monitors were placed. Using mask and IV access, general anesthesia was induced. The patient was next transorally intubated without difficulty. The patient was rotated 90 degrees and positioned for tonsil surgery. The patient's lips, teeth, tongue and inside of the mouth were inspected and noted to be without defects. There was a mouth gag inserted. It was opened, and the patient was placed into suspension. There was a soft catheter placed through the patient's nose that was used to suspend the soft palate. Findings are as noted above. At this point, the plasma J-Hook was used to dissect and remove tonsillar tissue on each side. This device was also used to provide adequate hemostasis. Saline irritation was performed and suctioned. There was adequate hemostasis noted. The soft catheter was next released and removed from the patient's nose. The mouth gag was removed from the patient's mouth without difficulty. There was no damage to the lips, teeth, tongue, gums, or inside of the mouth. The patient was then returned to the anesthesia staff and was allowed to emerge from general anesthesia. At this point, the adenoid microdebrider system at a setting of 1500 rpm was used to debulk the adenoid tissue. Next, with use of adenoid packs and suction electrocautery, adequate hemostasis was achieved. The patient was extubated in the main operating room and was then transported to the postanesthesia recovery unit in stable condition. There were no complications. DICTATING PHYSICIAN: VANNESA BEJARANO D.O. [id number] PHY#: [id number] ID: [id number] JOB#: [id number] ACCT: [id number] cc:VANNESA BEJARANO D.O. >
== END 2018-11-23 16:39 | disposition home or self-care (01) ==
LOC: SC 13:10
PROVIDERS: ATTEND Otolaryngology
DX: J03.91 Acute recurrent tonsillitis, unspecified (principal); J35.01 Chronic tonsillitis; J35.3 Hypertrophy of tonsils with hypertrophy of adenoids; I10 Essential (primary) hypertension; J44.9 Chronic obstructive pulmonary disease, unspecified; Z79.899 Other long term (current) drug therapy; Z79.51 Long term (current) use of inhaled steroids
CPT/HCPCS: 36415; 86003 ×24; 82785; 42821; J2250; J3490 ×4; J1200; J3010; J1170; J0330; J2405; J2704; J1100; J0131; 170; 88304

== ENCOUNTER 2019-05-31 09:23 | Emergency (ER) | payer OTHER ==
[2019-05-31] MEDS ORDERED: IPRATROPIUM/ALBUTEROL 0.5-2.5 MG/3 ML AMPUL NEB ONE (10:05)
--- NOTE | 2019-05-31 10:07 | ER Document Report ---
ED Medical Screen (RME) - General Chief Complaint: Shortness Of Breath Stated Complaint: DIFFICULTY BREATHING Time Seen by Provider: 05/31/19 09:44 Primary Care Provider: CAROLE JAVIER MD [Primary Care Provider] - Follow up as needed TRAVEL OUTSIDE OF THE [place] IN LAST 30 DAYS: No - HPI Notes: 05/31/19 10:06 24-year-old female to the emergency department with complaints of wheezing productive cough and now inspiratory chest pain that began 2 to 3 days ago. She states that she had a similar episode last fall and she had pneumonia. She states that she has been diagnosed with asthma and has been using her rescue inhaler without a lot of relief. She denies any fevers. She is a non-smoker. She denies chance of . Performed a medical screening exam on patient and will obtain imaging as well as EKG. Have ordered breathing treatment and prednisone. Patient agrees with the plan will have her further evaluated by main side provider. - Related Data Allergies/Adverse Reactions: No Known Allergies Allergy (Verified 11/22/18 12:23) Past Medical History - Past Medical History Cardiac Medical History: Reports: Hx Hypertension Denies: Hx Heart Attack Pulmonary Medical History: Reports: Hx Asthma Neurological Medical History: Denies: Hx Cerebrovascular Accident, Hx Seizures Renal/ Medical History: Denies: Hx Peritoneal Dialysis GI Medical History: Denies: Hx Hepatitis, Hx Hiatal Hernia, Hx Ulcer Infectious Medical History: Denies: Hx Hepatitis Past Surgical History: Reports: Hx Section, Hx Cholecystectomy. Denies: Hx Hysterectomy, Hx Mastectomy, Hx Open Heart Surgery, Hx Pacemaker - Immunizations Hx Diphtheria, Pertussis, Tetanus Vaccination: Yes Physical Exam - Vital signs Vitals: Temp Pulse Resp BP Pulse Ox 98.9 F 108 H 20 146/91 H 96 05/31/19 09:36 05/31/19 09:36 05/31/19 09:36 05/31/19 09:36 05/31/19 09:36 Course - Vital Signs Vital signs: Temp Pulse Resp BP Pulse Ox 98.9 F 108 H 20 146/91 H 96 05/31/19 09:36 05/31/19 09:36 05/31/19 09:36 05/31/19 09:36 05/31/19 09:36 Doctor's Discharge - Discharge Referrals: CAROLE JAVIER MD [Primary Care Provider] - Follow up as needed
--- NOTE | 2019-05-31 11:00 | RADIOLOGY REPORT (SQ) ---
EXAM DESCRIPTION: CHEST 2 VIEWS COMPLETED DATE/TIME: 05/31/2019 10:53 am REASON FOR STUDY: wheezing, cough COMPARISON: 09/03/2018 EXAM PARAMETERS: NUMBER OF VIEWS: two views TECHNIQUE: Digital Frontal and Lateral radiographic views of the chest acquired. RADIATION DOSE: NA LIMITATIONS: none FINDINGS: LUNGS AND PLEURA: There are bibasilar infiltrates new from prior study right slightly grea ter than left. Developing pneumonia is suspected. No effusions. MEDIASTINUM AND HILAR STRUCTURES: No masses or contour abnormalities. HEART AND VASCULAR STRUCTURES: Heart normal size. No evidence for failure. BONES: No acute findings. HARDWARE: None in the chest. OTHER: No other significant finding. IMPRESSION: Mild basilar infiltrates right greater than left. Probable developing pneumonia. TECHNICAL DOCUMENTATION: JOB ID: [id number] [employer]- All Rights Reserved Reading location - IP/workstation name: [email or web address]
--- NOTE | 2019-05-31 11:20 | ER Document Report ---
ED Respiratory Problem - General Chief Complaint: Shortness Of Breath Stated Complaint: DIFFICULTY BREATHING Time Seen by Provider: 05/31/19 09:44 Primary Care Provider: CAROLE JAVIER MD [Primary Care Provider] - Follow up as needed Notes: Patient is a 24-year-old female who presents emergency department with a chief complaint of shortness of breath. She has had her shortness of breath for the past 2 to 3 days. She also states that she has had a productive cough with dark green/brown sputum. She took a puff of her rescue inhaler at 9:00 this morning, but had no relief of her symptoms. She also received a DuoNeb treatment in triage, but states that it had not helped. Patient has a past medical history of asthma, hypertension, and pneumonia. Patient states that she was recently on amoxicillin for a tooth infection about a week and half ago. She denies any fever, nausea, vomiting, or diarrhea. TRAVEL OUTSIDE OF THE [place] IN LAST 30 DAYS: No - Related Data Allergies/Adverse Reactions: No Known Allergies Allergy (Verified 11/22/18 12:23) Past Medical History - Social History Smoking Status: Never Smoker Frequency of alcohol use: Rare Drug Abuse: None Family History: Reviewed & Not Pertinent Patient has suicidal ideation: No Patient has homicidal ideation: No - Past Medical History Cardiac Medical History: Reports: Hx Hypertension Denies: Hx Heart Attack Pulmonary Medical History: Reports: Hx Asthma Neurological Medical History: Denies: Hx Cerebrovascular Accident, Hx Seizures Renal/ Medical History: Denies: Hx Peritoneal Dialysis GI Medical History: Denies: Hx Hepatitis, Hx Hiatal Hernia, Hx Ulcer Infectious Medical History: Denies: Hx Hepatitis Past Surgical History: Reports: Hx Section, Hx Cholecystectomy. Denies: Hx Hysterectomy, Hx Mastectomy, Hx Open Heart Surgery, Hx Pacemaker - Immunizations Hx Diphtheria, Pertussis, Tetanus Vaccination: Yes Review of Systems - Review of Systems Notes: REVIEW OF SYSTEMS: CONSTITUTIONAL : Denies recent illness. Denies recent unintentional weight loss. Denies fever, chills, or sweats. EENT: Denies eye, ear, throat, or mouth pain, discharge, or symptoms. Denies nasal or sinus congestion. CARDIOVASCULAR: Denies chest pain. RESPIRATORY: See HPI. GASTROINTESTINAL: Denies nausea, vomiting, and diarrhea. Denies abdominal pain. Denies constipation. GENITOURINARY: Denies difficulty urinating, burning, blood in urine, urgency or frequency. MUSCULOSKELETAL: Denies neck and back pain. Denies joint pain or swelling. SKIN: Denies rash, itchiness, or lesions HEMATOLOGIC : Denies easy bruising or bleeding. LYMPHATIC: Denies swollen, painful, enlarged glands. NEUROLOGICAL: Denies no numbness or tingling denies weakness. Denies headache. Denies altered mental status. Denies alteration in speech. PSYCHIATRIC: Denies stress, anxiety, alteration in sleep patterns, or depression. All other systems reviewed and negative. Physical Exam - Vital signs Vitals: Temp Pulse Resp BP Pulse Ox 98.9 F 108 H 20 146/91 H 96 05/31/19 09:36 05/31/19 09:36 05/31/19 09:36 05/31/19 09:36 05/31/19 09:36 - Notes Notes: PHYSICAL EXAMINATION: GENERAL: Appears well, healthy, well-nourished, no acute distress. HEAD: Normocephalic, atraumatic. EYES: PERRL, conjunctiva normal, all extraocular movements intact, sclera nonic teric ENT: Moist mucous membranes. NECK: Supple, no noticeable swelling, redness, rash. Normal range of motion. LUNGS: Equal breath sounds bilaterally coarse rhonchi throughout all lung munguia. CARDIOVASCULAR: S1-S2, regular rate, regular rhythm. Radial pulses 2+, normal. ABDOMEN: Normoactive bowel sounds. Soft, nontender, no guarding, no rebound tenderness, and no masses palpated. EXTREMITIES: Normal strength and range of motion, no pitting or edema. No cyanosis. NEUROLOGICAL: Moves all extremities upon command. Strength 5/5 in all extremities. PSYCH: Normal mood, normal affect. SKIN: Warm, dry. No rash, lesions, ulcerations noted. Normal skin turgor. Course - Re-evaluation Re-evalutation: 05/31/19 11:24 Patient's chest x-ray shows a right-sided infiltrate, which most likely represents pneumonia and is consistent with her lung sounds. She will be started on Cefdenir and will be sent home with a course of oral prednisone. She will follow-up with her primary care provider in regards to this visit. I have very low suspicion for pulmonary emboli. Patient appears well. A very low suspicion for sepsis. Follow-up precautions were given. Verbal discharge instructions were given to the patient. They verbalized understanding. They are stable for discharge. - Vital Signs Vital signs: Temp Pulse Resp BP Pulse Ox 98.9 F 108 H 20 146/91 H 96 05/31/19 09:36 05/31/19 09:36 05/31/19 09:36 05/31/19 09:36 05/31/19 09:36 Discharge - Discharge Clinical Impression: Productive cough Pneumonia Qualifiers: Pneumonia type: due to unspecified organism Laterality: right Lung location: middle lobe of lung Qualified Code(s): J18.1 - Lobar pneumonia, unspecified organism Asthma Qualifiers: Asthma severity: moderate Asthma persistence: unspecified Asthma complication type: unspecified Qualified Code(s): J45.909 - Unspecified asthma, uncomplicated Condition: Stable Disposition: HOME, SELF-CARE Additional Instructions: You have been diagnosed with a pneumonia. It is very important that you take all of your antibiotics until they are gone even if you are feeling better. You are also being placed on steroids. Please finish all your medication as prescribed. Please return to the emergency department immediately if you began having worsening shortness of breath, become confused, have worsening pain, pass out, have persistent vomiting that prevents you from being able to drink fluids for more than 12 hours, or have any other symptoms that are worrisome to you. Please follow-up with your primary care doctor in the next 1-2 days. Prescriptions: Prednisone [Deltasone 20 mg Tablet] 3 tab PO DAILY 5 Days #15 tablet Cefdinir [Omnicef 300 mg Capsule] 1 cap PO BID #10 capsule Forms: Return to Work Referrals: CAROLE JAVIER MD [Primary Care Provider] - Follow up in 3-5 days
[2019-05-31 11:41] VITALS: BP 144/91
--- NOTE | 2019-05-31 12:12 | EKG REPORT ---
SEVERITY:- OTHERWISE NORMAL ECG - SINUS TACHYCARDIA : Confirmed by: Marciano Almaraz MD 31-May-2019 12:12:13
== END 2019-05-31 11:40 | disposition home or self-care (01) ==
LOC: ER 09:23
DX: J18.1 Lobar pneumonia, unspecified organism (principal); J45.909 Unspecified asthma, uncomplicated; R05 Cough; R06.02 Shortness of breath; I10 Essential (primary) hypertension
CPT/HCPCS: 93005; 71046; 93010; J7620

== ENCOUNTER 2020-09-06 11:45 | Emergency (ER) | payer OTHER, MEDICAID ==
--- NOTE | 2020-09-06 14:03 | RADIOLOGY REPORT (SQ) ---
EXAM DESCRIPTION: U/S OB TRANSVAG W/DOPPLER IMAGES COMPLETED DATE/TIME: 09/06/2020 1:41 pm REASON FOR STUDY: 4 weeks /vaginal bleedx 24 hrs COMPARISON: None. TECHNIQUE: Transvaginal static and realtime grayscale images acquired of the pelvis. Additional bala cted spectral and color Doppler images recorded. All images stored on PACs. bHCG: Pending. CLINICAL DATES: LMP 08/03/2020 4 weeks 6 days LIMITATIONS: None. FINDINGS: There is no intrauterine gestational sac. UTERUS: No masses. No anomalies. CERVICAL LENGTH: 3 cm. Closed. RIGHT ADNEXA: Normal ovary with normal vascular flow. 2 x 1 x 1 cm No adnexal free fluid. No adnexal masses. LEFT ADNEXA: Normal ovary with normal vascular flow. 2 x 2 x 2 cm No adnexal free fluid. No adnexal masses. FREE FLUID: None. OTHER: No other significant finding. IMPRESSION: No intrauterine gestation is seen at this time. Follow-up as clinically indicated. TECHNICAL DOCUMENTATION: JOB ID: [id number] [employer]- All Rights Reserved rev Reading location - IP/workstation name: [email or web address]
[2020-09-06 15:05] LABS: ABSOLUTE LYMPHOCYTES (AUTO) 2.2 10^3/uL (0.5-4.7); ABSOLUTE MONOCYTES (AUTO) 0.7 10^3/uL (0.1-1.4); ABSOLUTE NEUT (AUTO) 6.7 10^3/uL (1.7-8.2); BASOPHILS % (AUTO) 0.4 % (0-2); EOSINOPHILS % (AUTO) 0.5 % (0-6); HEMATOCRIT 41.2 % (36.0-47.0); HEMOGLOBIN 14.3 g/dL (12.0-15.5); LYMPHOCYTES % (AUTO) 23.1 % (13-45); MEAN CORPUSCULAR HEMOGLOBIN 29.5 pg (27.0-33.4); MEAN CORPUSCULAR HGB CONC 34.8 g/dL (32.0-36.0); MEAN CORPUSCULAR VOLUME 85 fl (80-97); MONOCYTES % (AUTO) 6.8 % (3-13); PLATELET COUNT 391 10^3/uL (150-450); RED BLOOD COUNT 4.86 10^6/uL (3.72-5.28); RED CELL DISTRIBUTION WIDTH 12.6 % (11.5-14.0); SEGMENTED NEUTROPHILS % (AUTO) 69.2 % (42-78); TOTAL CELLS COUNTED % (AUTO) 100 %; WHITE BLOOD COUNT 9.7 10^3/uL (4.0-10.5)
[2020-09-06 15:10] LABS: APPEARANCE,URINE SLIGHTLY-CLOUDY; BILIRUBIN,URINE NEGATIVE (NEGATIVE); COLOR,URINE YELLOW; GLUCOSE, URINE NEGATIVE (NEGATIVE); KETONES,URINE NEGATIVE (NEGATIVE); LEUKOCYTE ESTERASE,URINE NEGATIVE (NEGATIVE); NITRITE,URINE NEGATIVE (NEGATIVE); PROTEIN,URINE NEGATIVE (NEGATIVE); UROBILINOGEN,URINE NEGATIVE mg/dL (<2.0)
[2020-09-06 16:32] LABS: CHLAM PCR NOT DETECTED (NOT DETECT)
--- NOTE | 2020-09-06 16:49 | ER Document Report ---
Entered by LICO HURTADO SCRIBE 09/06/20 1239 Acting as scribe for:SHAYNE CHAPIN MD ED GI/ - General Chief Complaint: Vag Bleeding, +preg <12wks Stated Complaint: VAGINAL BLEEDING Time Seen by Provider: 09/06/20 12:37 Primary Care Provider: YOU BRANTLEY MD [Primary Care Provider] - Follow up as needed Mode of Arrival: Ambulatory Information source: Patient Notes: This 25-year-old female patient that is , approximately 4 weeks and 6 days by her dates, having twins in the past, presents with vaginal bleeding today. Patient reports she noticed blood last night when she wiped and this morning there was more blood and there were small clots in the toilet. She denies any abdominal cramping, diarrhea, fevers, chills, dysuria, or low back pain. Patient's LMP was August 06. She did a home test on August 28 which was positive. The next day she went to [facility] and they told her that the results were too faint to call. She went back on the and they did another test and this one did come back positive. She reports they scheduled a follow-up with her when she would be 7 weeks . TRAVEL OUTSIDE OF THE [place] IN LAST 30 DAYS: No - Related Data Allergies/Adverse Reactions: No Known Allergies Allergy (Verified 09/06/20 12:40) Past Medical History - General Information source: Patient - Social History Smoking Status: Never Smoker Cigarette use (# per day): No Frequency of alcohol use: None Drug Abuse: None Lives with: Family Family History: Reviewed & Not Pertinent - Past Medical History Cardiac Medical History: Reports: Hx Hypertension Pulmonary Medical History: Reports: Hx Asthma Past Surgical History: Reports: Hx Section, Hx Cholecystectomy - Immunizations Hx Diphtheria, Pertussis, Tetanus Vaccination: Yes Review of Systems - Review of Systems Constitutional: No symptoms reported EENT: No symptoms reported Cardiovascular: No symptoms reported Respiratory: No symptoms reported Gastrointestinal: No symptoms reported Genitourinary: No symptoms reported Female Genitourinary: See HPI, , Vaginal bleeding Musculoskeletal: No symptoms reported Skin: No symptoms reported Hematologic/Lymphatic: No symptoms reported Neurological/Psychological: No symptoms reported -: Yes All other systems reviewed and negative Physical Exam - Vital signs Vitals: Temp Pulse Resp BP Pulse Ox 98.4 F 124 H 20 155/112 H 98 09/06/20 11:47 09/06/20 11:47 09/06/20 11:47 09/06/20 11:47 09/06/20 11:47 - Notes Notes: Physical Exam: General: Alert, appears well. HEENT: Normocephalic. Atraumatic. PERRL. Extraocular movements intact. Orop harynx clear. Neck: Supple. Non-tender. Respiratory: No respiratory distress. Clear and equal breath sounds bilaterally. Cardiovascular: Regular rate and rhythm. Abdominal: Obese. Non-tender. No distension. Normal Bowel Sounds. Back: No gross abnormalities. Extremities: Moves all four extremities. Upper extremities: Normal inspection. Normal ROM. Lower extremities: Normal inspection. No edema. Normal ROM. Neurological: Normal cognition. AAOx4. Normal speech. Psychological: Normal affect. Normal Mood. Skin: Warm. Dry. Normal color. Course - Re-evaluation Re-evalutation: 09/06/20 16:42 Patient resting comfortably at this time. Patient is disappointed in the news of the ultrasound not showing any signs of . I later once labs were available explained to patient that her quantitative beta-hCG on this is 8, which is a very low number. The question is whether or not this number is increasing or decreasing in the face of patient who states that based on her menstrual history and dates that she should be 4 weeks 6 days and she started and began having vaginal bleeding yesterday with clots of blood without any other tissue seen. Discussed with patient that the number that we have sent today could increase in double or could continue if it is getting lower to lower itself to 0 at some point. Recommend that she follow-up as soon as possible with [facility] - Vital Signs Vital signs: Temp Pulse Resp BP Pulse Ox 99.3 F 110 H 20 148/103 H 100 09/06/20 13:47 09/06/20 13:47 09/06/20 13:47 09/06/20 13:47 09/06/20 13:47 09/06/20 16:44 Vital signs temperature 99.3 pulse is 110 blood pressure 148/103 and a pulse ox 100. Patient has been hypertension very since she was preeclamptic with her prior and patient is on blood pressure medication. - Laboratory Results Result Diagrams: 09/06/20 14:47 Laboratory Results Interpreted: 09/06/20 09/06/20 14:39 14:47 Beta HCG, Quant 8.21 H Urine Blood LARGE H Patient's laboratory shows a beta-hCG quant of 8.2 and a large amount of blood in the urine. Patient's blood type is a positive therefore no RhoGam is indicated Critical Laboratory Results Reviewed: Yes Attending or Supervising Physician who Reviewed Labs: SHAYNE CHAPIN - A low quantitative beta-hCG level of 8 in the face of vaginal bleeding. Most likely patient is having a miscarriage and perhaps a completed or incomplete . - Radiology Results Critical Radiology Results Reviewed: No Critical Results - Radiology report shows no evidence on ultrasound of pelvis of any no gestational sac or any other signs of . Discharge - Discharge Clinical Impression: Threatened miscarriage in early Condition: Stable Disposition: HOME, SELF-CARE Admitting Provider: [facility] - Is only wounds are seen instruction was Instructions: [employer], Threatened Miscarriage ([facility]) Forms: Elevated Blood Pressure Referrals: YOU BRANTLEY MD [Primary Care Provider] - Follow up as needed PIERCE WHITT MD [ACTIVE STAFF] - Follow up in 3-5 days I personally performed the services described in the documentation, reviewed and edited the documentation which was dictated to the scribe in my presence, and it accurately records my words and actions.
[2020-09-06 17:01] VITALS: BP 145/99
== END 2020-09-06 17:18 | disposition home or self-care (01) ==
LOC: ER 11:45
DX: O20.0 Threatened abortion (principal); O16.1 Unspecified maternal hypertension, first trimester; O99.511 Diseases of the respiratory system complicating pregnancy, first trimester; J45.909 Unspecified asthma, uncomplicated; Z79.899 Other long term (current) drug therapy; Z3A.01 Less than 8 weeks gestation of pregnancy
CPT/HCPCS: 36415; 76817; 81001; 81025; 84702; 85025; 86900; 86901; 87491; 87591; 93976; 99284

== ENCOUNTER 2020-09-22 14:02 | Emergency (ER) | payer OTHER, MEDICAID ==
--- NOTE | 2020-09-22 15:58 | ER Document Report ---
ED Medical Screen (RME) - General Stated Complaint: SHOULDER PAIN/NAUSEA Time Seen by Provider: 09/22/20 15:52 Primary Care Provider: YOU BRANTLEY MD [Primary Care Provider] - Follow up as needed Notes: HPI: 25-year-old female presenting for evaluation of her . Patient states that she had vaginal bleeding on September 06 and presented to the emergency department was told her beta hCG was positive and she was . Had a negative ultrasound at that time. Patient has been following with [facility] states that her beta hCG only moved from 8 to 19 and she is due follow-up with [facility] again this coming . She states she began having neck and left shoulder discomfort and was concerned she had an ectopic . Reports some dysuria and low back pain but no further vaginal bleeding no pelvic pain PHYSICAL EXAMINATION: No CVA tenderness on exam. No suprapubic tenderness on palpation. Gait is normal I have greeted and performed a rapid initial assessment of this patient. A comprehensive ED assessment and evaluation of the patient, analysis of test results and completion of medical decision making process will be conducted by an additional ED providers. Please note that clinical decision making for this patient was made during the 2019 pandemic of novel coronavirus which caused a significant strain on the healthcare system including at this particular facility. Criteria for admission discharge and level of care decisions as well as treatment decisions have necessarily changed TRAVEL OUTSIDE OF THE [place] IN LAST 30 DAYS: No - Related Data Allergies/Adverse Reactions: No Known Allergies Allergy (Verified 09/06/20 12:40) Past Medical History - Past Medical History Cardiac Medical History: Reports: Hx Hypertension Denies: Hx Heart Attack Pulmonary Medical History: Reports: Hx Asthma Neurological Medical History: Denies: Hx Cerebrovascular Accident, Hx Seizures Renal/ Medical History: Denies: Hx Peritoneal Dialysis GI Medical History: Denies: Hx Hepatitis, Hx Hiatal Hernia, Hx Ulcer Infectious Medical History: Denies: Hx Hepatitis Past Surgical History: Reports: Hx Section, Hx Cholecystectomy. Denies: Hx Hysterectomy, Hx Mastectomy, Hx Open Heart Surgery, Hx Pacemaker - Immunizations Hx Diphtheria, Pertussis, Tetanus Vaccination: Yes Physical Exam - Vital signs Vitals: Temp Pulse Resp BP Pulse Ox 97.8 F 87 24 H 144/95 H 99 09/22/20 14:06 09/22/20 14:06 09/22/20 14:06 09/22/20 14:06 09/22/20 14:06 Course - Vital Signs Vital signs: Temp Pulse Resp BP Pulse Ox 97.8 F 87 24 H 144/95 H 99 09/22/20 14:06 09/22/20 14:06 09/22/20 14:06 09/22/20 14:06 09/22/20 14:06 Doctor's Discharge - Discharge Referrals: YOU BRANTLEY MD [Primary Care Provider] - Follow up as needed
[2020-09-22 17:09] LABS: ABSOLUTE LYMPHOCYTES (AUTO) 2.3 10^3/uL (0.5-4.7); ABSOLUTE MONOCYTES (AUTO) 0.9 10^3/uL (0.1-1.4); ABSOLUTE NEUT (AUTO) 7.4 10^3/uL (1.7-8.2); BASOPHILS % (AUTO) 0.3 % (0-2); EOSINOPHILS % (AUTO) 0.4 % (0-6); HEMATOCRIT 40.4 % (36.0-47.0); HEMOGLOBIN 13.8 g/dL (12.0-15.5); LYMPHOCYTES % (AUTO) 21.3 % (13-45); MEAN CORPUSCULAR HEMOGLOBIN 29.2 pg (27.0-33.4); MEAN CORPUSCULAR HGB CONC 34.2 g/dL (32.0-36.0); MEAN CORPUSCULAR VOLUME 86 fl (80-97); MONOCYTES % (AUTO) 8.6 % (3-13); PLATELET COUNT 423 10^3/uL (150-450); RED BLOOD COUNT 4.73 10^6/uL (3.72-5.28); RED CELL DISTRIBUTION WIDTH 12.8 % (11.5-14.0); SEGMENTED NEUTROPHILS % (AUTO) 69.4 % (42-78); TOTAL CELLS COUNTED % (AUTO) 100 %; WHITE BLOOD COUNT 10.7 10^3/uL (4.0-10.5)
[2020-09-22 17:13] LABS: APPEARANCE,URINE CLEAR; BILIRUBIN,URINE NEGATIVE (NEGATIVE); COLOR,URINE YELLOW; GLUCOSE, URINE NEGATIVE (NEGATIVE); KETONES,URINE NEGATIVE (NEGATIVE); LEUKOCYTE ESTERASE,URINE NEGATIVE (NEGATIVE); NITRITE,URINE NEGATIVE (NEGATIVE); PROTEIN,URINE NEGATIVE (NEGATIVE); URINE SPECIFIC GRAVITY 1.015; UROBILINOGEN,URINE NEGATIVE mg/dL (<2.0)
[2020-09-22 17:24] LABS: ALBUMIN 4.5 g/dL (3.5-5.0); ALKALINE PHOSPHATASE 71 U/L (38-126); ANION GAP 8 (5-19); ASPARTATE AMINO TRANSFERASE 90 U/L (14-36); BILIRUBIN,DIRECT 0.2 mg/dL (0.0-0.4); BILIRUBIN,TOTAL 0.5 mg/dL (0.2-1.3); BLOOD UREA NITROGEN 7 mg/dL (7-20); CALCIUM 10.1 mg/dL (8.4-10.2); CARBON DIOXIDE 27 mmol/L (22-30); CHLORIDE 103 mmol/L (98-107); GLUCOSE 94 mg/dL (75-110); TOTAL PROTEIN 7.9 g/dL (6.3-8.2)
--- NOTE | 2020-09-22 17:39 | RADIOLOGY REPORT (SQ) ---
EXAM DESCRIPTION: U/S OB TRANSVAG W/DOPPLER IMAGES COMPLETED DATE/TIME: 09/22/2020 4:45 pm REASON FOR STUDY: eval pelvic pain in preg COMPARISON: None. TECHNIQUE: Transvaginal static and realtime grayscale images acquired of the pelvis. Additional bala cted spectral and color Doppler images recorded. All images stored on PACs. CLINICAL AGE: 7 weeks 1 day bHCG: Pending. LIMITATIONS: None. FINDINGS: UTERUS: No masses. No anomalies. GESTATIONAL SAC: 2 cm. Lower uterine segment. YOLK SAC: No POLE: No RIGHT ADNEXA: Normal ovary with normal vascular flow. No adnexal free fluid. No adnexal masses. LEFT ADNEXA: Normal ovary with normal vascular flow. No adnexal free fluid. No adnexal masses. FREE FLUID: None. OTHER: No other significant finding. IMPRESSION: Possible gestational sac in the lower uterine segment. Likely AB in progress. BHCG LEVEL NOT AVAILABLE FOR CORRELATION WITH US FINDINGS. Continued follow-up. Trimester of : First trimester - 0 to 13 weeks. TECHNICAL DOCUMENTATION: JOB ID: [id number] [facility]- All Rights Reserved Reading location - IP/workstation name: [email or web address]
--- NOTE | 2020-09-22 18:59 | ER Document Report ---
ED GI/ - General Stated Complaint: SHOULDER PAIN/NAUSEA Time Seen by Provider: 09/22/20 15:52 Primary Care Provider: YOU BRANTLEY MD [Primary Care Provider] - Follow up as needed Notes: HPI: 25-year-old -2-0-3 at 7 weeks by dates who presents today with some left-sided neck discomfort as well as concern about her quantitative hCG levels. Patient was seen here on [place] with some vaginal bleeding. She had a quantitative hCG of 8 with nothing shown in the uterus. 2 days later it was 11. 2 days following this was 9. Supposedly 1 week later at the BRANCH CHIEF's office was 19. Patient was told to come back if she had any abdominal pain, fever, or shoulder pain. She states she slept funny last evening and believes her left side of her neck and this made her worried and wanted to get her quantitative levels checked. She denies any and all abdominal pain, pelvic pain, or vaginal bleeding. ROS: See HPI All other review of systems reviewed and otherwise negative Reviewed vital signs and nursing note as charted by RN. PHYSICAL EXAM: CONSTITUTIONAL: Alert and oriented and responds appropriately to questions. Well-appearing; well-nourished HEAD: Normocephalic; atraumatic EYES: Sclera not pale ENT: Normal nose; no rhinorrhea; moist mucous membranes; pharynx without lesions noted NECK: Supple without meningismus; left-sided paraspinal muscular tenderness with no swelling erythema CARD: Regular rate and rhythm; no murmurs; symmetric distal pulses RESP: Normal chest excursion without splinting or tachypnea; breath sounds clear and equal bilaterally; no wheezes, no rhonchi, no rales ABD/GI: Normal bowel sounds; non-distended; soft, non-tender to deep palpation of all 4 quadrants of the abdomen including the suprapubic area BACK: The back appears normal and is non-tender to palpation EXT: Normal ROM in all joints; non-tender to palpation; no edema SKIN: No acute lesions noted NEURO: CN 2-12 intact; 5/5 bilateral upper and lower extremity strength with sensation intact to light touch PSYCH: The patient's mood and manner are appropriate. Grooming and personal hygiene are appropriate. TRAVEL OUTSIDE OF THE [place] IN LAST 30 DAYS: No - Related Data Allergies/Adverse Reactions: No Known Allergies Allergy (Verified 09/06/20 12:40) Past Medical History - Social History Smoking Status: Unknown if Ever Smoked Family History: Reviewed & Not Pertinent - Past Medical History Cardiac Medical History: Reports: Hx Hypertension Denies: Hx Heart Attack Pulmonary Medical History: Reports: Hx Asthma Neurological Medical History: Denies: Hx Cerebrovascular Accident, Hx Seizures Renal/ Medical History: Denies: Hx Peritoneal Dialysis GI Medical History: Denies: Hx Hepatitis, Hx Hiatal Hernia, Hx Ulcer Infectious Medical History: Denies: Hx Hepatitis Past Surgical History: Reports: Hx Section, Hx Cholecystectomy. Denies: Hx Hysterectomy, Hx Mastectomy, Hx Open Heart Surgery, Hx Pacemaker - Immunizations Hx Diphtheria, Pertussis, Tetanus Vaccination: Yes Physical Exam - Vital signs Vitals: Temp Pulse Resp BP Pulse Ox 97.8 F 87 24 H 144/95 H 99 09/22/20 14:06 09/22/20 14:06 09/22/20 14:06 09/22/20 14:06 09/22/20 14:06 Course - Re-evaluation Re-evalutation: Given the above history and physical quantitative repeat hCG was ordered as well as a transvaginal ultrasound. Patient has had no vaginal bleeding. We would like to assess for the possibility of early , ectopic , ruptured ectopic , or other acute pathology. 09/22/20 18:58 Labs as recorded. Quantitative hCG as recorded. I did call and speak directly to the BRANCH CHIEF who went over the patient's quantitative hCG results and serial ultrasounds. She states that she does not believe that the patient requires admission but would like to expedite follow-up. She states that she will have the patient seen in clinic on Wednesday. Patient still has no pain and is comfortable with this plan. - Vital Signs Vital signs: Temp Pulse Resp BP Pulse Ox 97.8 F 87 24 H 144/95 H 99 09/22/20 14:06 09/22/20 14:06 09/22/20 14:06 09/22/20 14:06 09/22/20 14:06 - Laboratory Results Result Diagrams: 09/22/20 16:16 09/22/20 16:16 Laboratory Results Interpreted: 09/22/20 09/22/20 16:16 16:16 WBC 10.7 H AST 90 H ALT 115 H Beta HCG, Quant 34.14 H Critical Laboratory Results Reviewed: No Critical Results - Radiology Results Critical Radiology Results Reviewed: No Critical Results Discharge - Discharge Clinical Impression: Inapp chg hCG early preg Condition: Good Disposition: HOME, SELF-CARE Additional Instructions: Come back immediately for any abdominal pain, lightheadedness or dizziness, fevers or vomiting, vaginal bleeding, or any other acute problems. Please follow-up on Wednesday with your BRANCH CHIEF as has been expedited for you. Referrals: YOU BRANTLEY MD [Primary Care Provider] - Follow up as needed
[2020-09-22 19:28] VITALS: BP 135/87
== END 2020-09-22 19:27 | disposition home or self-care (01) ==
LOC: ER 14:02
DX: O99.891 Other specified diseases and conditions complicating pregnancy (principal); M25.519 Pain in unspecified shoulder; R11.0 Nausea; O16.1 Unspecified maternal hypertension, first trimester; O99.511 Diseases of the respiratory system complicating pregnancy, first trimester; J45.909 Unspecified asthma, uncomplicated; Z3A.01 Less than 8 weeks gestation of pregnancy
CPT/HCPCS: 36415; 76817; 80053; 81001; 84702; 85025; 93976; 99284